=== PATIENT | female | born 1980 | race African-American/Black ===

== ENCOUNTER 2017-06-03 00:58 | Emergency (ER) | payer OTHER ==
[2017-06-03 01:03] VITALS: BP 178/107; PULSE 88; RESP 17; TEMP 98.3; O2SAT 100
--- NOTE | 2017-06-03 02:12 | PD ---
HPI Chief Complaint: GI Complaint Time Seen by Provider: 01:59 Travel History International Travel<30 days: No Contact w/Intl Traveler<30days: No Traveled to known affect area: No History of Present Illness HPI 36 years old female complains of heartburn, indigestion. Patient states the symptoms started a week ago. Patient states that she has some burning sensation epigastric area and to the throat area. Patient states that the symptoms are worse with eating and at night. Patient try [id number] Maalox and Tums without relief. Patient denies any fever chills. Patient denies any nausea vomiting diarrhea. Patient denies any dysuria frequency. Patient denies any vaginal discharge or bleeding. Patient denies any chance of being . PFSH Past Medical History Diminished Hearing: No ?: Not LMP: 05/09/2017 Past Surgical History Gynecologic Surgery: Yes (fibroids removed 2014) Social History Alcohol Use: No Tobacco Use: No Substance Use: No Allergies-Medications (Allergen,Severity, Reaction): Coded Allergies: No Known Allergies (Unverified , 06/03/17) Reported Meds & Prescriptions Reported Meds & Active Scripts Active No Active Prescriptions or Reported Medications Review of Systems General / Constitutional: No: Fever Eyes: No: Visual changes HENT: No: Headaches Cardiovascular: No: Chest Pain or Discomfort Respiratory: No: Shortness of Breath Gastrointestinal: Positive: Indigestion, No: Abdominal Pain Genitourinary: No: Dysuria Musculoskeletal: No: Pain Skin: No Rash Neurologic: No: Weakness Psychiatric: No: Depression Endocrine: No: Polydipsia Hematologic/Lymphatic: No: Easy Bruising Physical Exam Narrative GENERAL: Well-nourished, well-developed patient. SKIN: Focused skin assessment warm/dry. HEAD: Normocephalic. EYES: No scleral icterus. No injection or drainage. NECK: Supple, trachea midline. No JVD or lymphadenopathy. CARDIOVASCULAR: Regular rate and rhythm without murmurs, gallops, or rubs. RESPIRATORY: Breath sounds equal bilaterally. No accessory muscle use. GASTROINTESTINAL: Abdomen soft, nondistended. Patient has mild tenderness on palpation epigastric area. No rebound tenderness. No mass. MUSCULOSKELETAL: No cyanosis, or edema. BACK: Nontender without obvious deformity. No CVA tenderness. Data Data Last Documented VS Vital Signs Date Time Temp Pulse Resp B/P (MAP) Pulse Ox O2 Delivery O2 Flow Rate FiO2 06/03/17 01:03 98.3 88 17 178/107 (130) 100 Orders Orders Complete Blood Count With Diff (06/03/17 02:04) Comprehensive Metabolic Panel (06/03/17 02:04) Lipase (06/03/17 02:04) Iv Access Insert/Monitor (06/03/17 02:04) Pantoprazole (Protonix) (06/03/17 02:15) Yqvny-Kxzpum-Ikyyht-Pb Liq ( Liq (06/03/17 02:15) Al-Mag Hy-Si 40-40-4 Mg/Ml Liq (Mag-Al P (06/03/17 02:15) Labs Laboratory Tests Test 06/03/17 02:18 White Blood Count 10.0 TH/MM3 Red Blood Count 5.14 MIL/MM3 Hemoglobin 13.6 GM/DL Hematocrit 41.1 % Mean Corpuscular Volume 79.9 FL Mean Corpuscular Hemoglobin 26.4 PG Mean Corpuscular Hemoglobin Concent 33.0 % Red Cell Distribution Width 13.8 % Platelet Count 364 TH/MM3 Mean Platelet Volume 7.6 FL Neutrophils (%) (Auto) 45.2 % Lymphocytes (%) (Auto) 45.4 % Monocytes (%) (Auto) 6.8 % Eosinophils (%) (Auto) 1.3 % Basophils (%) (Auto) 1.3 % Neutrophils # (Auto) 4.5 TH/MM3 Lymphocytes # (Auto) 4.5 TH/MM3 Monocytes # (Auto) 0.7 TH/MM3 Eosinophils # (Auto) 0.1 TH/MM3 Basophils # (Auto) 0.1 TH/MM3 CBC Comment DIFF FINAL Differential Comment Blood Urea Nitrogen 10 MG/DL Creatinine 0.74 MG/DL Random Glucose 81 MG/DL Total Protein 9.0 GM/DL Albumin 4.1 GM/DL Calcium Level 9.8 MG/DL Alkaline Phosphatase 107 U/L Aspartate Amino Transf (AST/SGOT) 16 U/L Alanine Aminotransferase (ALT/SGPT) 24 U/L Total Bilirubin 0.2 MG/DL Sodium Level 140 MEQ/L Potassium Level 3.8 MEQ/L Chloride Level 105 MEQ/L Carbon Dioxide Level 27.8 MEQ/L Anion Gap 7 MEQ/L Estimat Glomerular Filtration Rate 89 ML/MIN Lipase 88 U/L [facility] Medical Decision Making Medical Screen Exam Complete: Yes Emergency Medical Condition: Yes Interpretation(s) 2:52 AM. CBC within normal limits. CMP within normal limits. Differential Diagnosis Differential diagnosis including GERD, gastritis, PUD, pancreatitis, cholecystitis, UTI, pyelonephritis. Narrative Course 36 years old female complains of indigestion and heartburn for the past week. Protonix 40 mg p.o. Maalox 30 cc p.o. 10 cc p.o. Diagnosis Primary Impression: Gastritis Qualified Codes: K29.00 - Acute gastritis without bleeding Patient Instructions: General Instructions Additional Instructions: Take medications as directed. Follow-up with personal physician. Follow-up with icd 9 coder. Return if worse. Med/Other Pt SpecificInfo: Prescription(s) given Scripts Sucralfate (Carafate) 1 Gram Tab 1 GM PO QID for Ulcer Prevention, #120 TAB 0 Refills On empty stomach Prov: Neymar Mcknight MD 06/03/17 Pantoprazole (Protonix) 40 Mg Tab 40 MG PO DAILY for Reflux, #30 TAB 0 Refills Prov: Neymar Mcknight MD 06/03/17 Disposition: 01 DISCHARGE HOME Condition: Stable Neymar Mcknight MD Jun 03, 2017 02:12
[2017-06-03] MEDS ORDERED: ATROPINE/SCOPOLAM/HYOSCYAM/PB ELIXIR 10 ML CUP PO ONE (02:15)
[2017-06-03] MEDS ORDERED: ALUMINUM/MAGNESIUM/SIMETH 30 ML CUP PO ONE (02:15)
[2017-06-03] MEDS ORDERED: PANTOPRAZOLE SOD 40 MG DELAYED RELEASE TAB PO ONE (02:15)
[2017-06-03 02:28] LABS: AUTOMATED NEUTROPHIL # 4.5 TH/MM3 (1.8-7.7); BASOPHIL # 0.1 TH/MM3 (0-0.2); BASOPHIL % 1.3 % (0.0-2.0); EOSINOPHIL # 0.1 TH/MM3 (0-0.4); EOSINOPHIL % 1.3 % (0.0-4.0); HEMATOCRIT 41.1 % (35.0-46.0); HEMOGLOBIN 13.6 GM/DL (11.6-15.3); LYMPH % 45.4 % (9.0-44.0); LYMPHOCYTE # 4.5 TH/MM3 (1.0-4.8); MEAN CELL VOLUME 79.9 FL (80.0-100.0); MEAN CORPUSCULAR HEMOGLOBIN 26.4 PG (27.0-34.0); MEAN PLATELET VOLUME 7.6 FL (7.0-11.0); MONO % 6.8 % (0.0-8.0); MONOCYTE # 0.7 TH/MM3 (0-0.9); NEUT % 45.2 % (16.0-70.0); PLATELET COUNT 364 TH/MM3 (150-450); RED BLOOD COUNT 5.14 MIL/MM3 (4.00-5.30); RED CELL DISTRIBUTION WIDTH 13.8 % (11.6-17.2)
[2017-06-03 02:43] LABS: ALBUMIN 4.1 GM/DL (3.4-5.0); ALT (GPT) 24 U/L (10-53); AST (GOT) 16 U/L (15-37); BICARBONATE 27.8 MEQ/L (21.0-32.0); BLOOD UREA NITROGEN 10 MG/DL (7-18); CALCIUM 9.8 MG/DL (8.5-10.1); CHLORIDE 105 MEQ/L (98-107); CREATININE 0.74 MG/DL (0.50-1.00); GLOMERULAR FILTRATION RATE 89 ML/MIN (>89); GLUCOSE,RANDOM 81 MG/DL (74-106); SODIUM (NA) 140 MEQ/L (136-145)
[2017-06-03 02:45] LABS: ALKALINE PHOSPHATASE 107 U/L (45-117); TOTAL BILIRUBIN ADULT 0.2 MG/DL (0.2-1.0)
[2017-06-03] MEDS ORDERED: CARA1TAB6 PO (02:54)
[2017-06-03] MEDS ORDERED: PROT40TA PO (02:54)
== END 2017-06-03 04:04 | disposition home or self-care (01) ==
LOC: NEPE 00:58
DX: K29.00 Acute gastritis without bleeding (principal)
CPT/HCPCS: 80053; 83690; 85025; 99283